=== PATIENT | female | born 1945 | race Caucasian/White ===

== ENCOUNTER 2024-08-10 15:46 | Outpatient (CLI) | payer MEDICARE, SELFPAY ==
--- NOTE | 2024-08-10 14:02 | DI.RAD_ITS ---
Exam(s) XR PELVIS AP EXAM: XR PELVIS AP CLINICAL HISTORY: eval R hip OA for urgery. TECHNIQUE: 2D digital imaging was performed. Single AP view. COMPARISON: CR XR HIP MIN 2V RT from 05/19/2024 FINDINGS: BONES: No acute fracture is present. No bony destructive lesion is seen. JOINTS: No dislocation present. There is severe narrowing of the right hip joint space, with a bone- on-bone appearance. There is prominent spurring at the margins of the femoral head as well as aceta bulum. The left hip joint space is maintained. There is mild spurring at the left acetabulum. SOFT TISSUE: Normal. IMPRESSION: Severe degenerative changes of the right hip. DATA REPOSITORY: RADIATION DOSE DELIVERED:
== END 2024-08-10 15:47 | disposition home or self-care (01) ==
LOC: DIORS 15:46
PROVIDERS: PCP Registered Nurse; Referring Provider Registered Nurse; Visit Provider Student in an Organized Health Care Education/Training Program
DX: M16.11 Unilateral primary osteoarthritis, right hip (principal); M17.11 Unilateral primary osteoarthritis, right knee; M21.061 Valgus deformity, not elsewhere classified, right knee; M17.12 Unilateral primary osteoarthritis, left knee
CPT/HCPCS: 99204; 72170

== ENCOUNTER → 2025-05-21 13:52 | Outpatient (BNVA) | payer MEDICARE, SELFPAY | PROVIDERS: PCP Registered Nurse; Referring Provider Registered Nurse; Visit Provider Physician Assistant | DX: M16.11 Unilateral primary osteoarthritis, right hip (principal); E11.9 Type 2 diabetes mellitus without complications | CPT/HCPCS: 99214; 36416; 83036 ==

== ENCOUNTER 2025-05-21 18:49 | Outpatient (REF) | payer MEDICARE, SELFPAY ==
[2025-05-21 19:49] LABS: HCT 42.3 % (36.0-46.0); HGB 13.9 g/dL (11.2-15.7); MCH 27.9 pg (27.0-33.0); MCHC 32.9 % (32.0-36.0); MCV 85 fL (80-95); MPV 10.8 fL (8.0-11.0); Platelet Count 240 10^3/uL (130-400); RBC 4.99 10^6/uL (3.93-5.22); RDW 13.2 % (11.7-14.6); RDW-SD 40.7 fL; WBC 7.71 10^3/uL (4.4-10.8)
[2025-05-21 19:56] LABS: Anion Gap 9.7 mmol/L (3-11); BUN 14 mg/dL (7-18); CO2 28.3 mmol/L (21.0-32.0); CREATININE 0.7 mg/dL (0.55-1.02); Calcium 10.1 mg/dL (8.5-10.1); Chloride 98 mmol/L (98-107); Estimated GFR 88.47 (mL/min/1.73m2); Glucose 98 mg/dL (74-106); Potassium 3.7 mmol/L (3.5-5.1); Sodium 136 mmol/L (136-145)
== END 2025-05-21 18:50 | disposition home or self-care (01) ==
LOC: LBN 18:49
PROVIDERS: PCP Registered Nurse; Visit Provider Student in an Organized Health Care Education/Training Program
DX: M16.11 Unilateral primary osteoarthritis, right hip (principal); Z01.818 Encounter for other preprocedural examination
CPT/HCPCS: 80048; 85027

== ENCOUNTER 2025-05-30 08:06 | Day surgery (SDC) | payer MEDICARE, SELFPAY ==
[2025-05-30] VITALS (26 sets, daily range): BP systolic 112–192; BP diastolic 70–144; PULSE 79–99; RESP 12–21; TEMP 36–36.7; O2SAT 91–98; BMI 34.4
[2025-05-30] MEDS: Celecoxib 200 MG CAP 400 MG PO (09:26)
[2025-05-30] MEDS: Acetaminophen 500 MG TAB 1000 MG PO (09:26)
--- NOTE | 2025-05-30 09:30 | W.ANESPRE ---
General Info Date of Service Date Performed: 05/30/25 Height: 5 ft 6 in Weight: 97 kg Body Mass Index (BMI): 34.4 Surgical Procedure: Operation Date: 05/30/25 11:05 Proposed Procedure Side Surgeon p Hip Total Hip Anterior- Corail Short Right Joe Luong MD Meds Allergies and Home Medications Allergies Allergy/AdvReac Type Severity Reaction Status Date / Time aspirin (From Percodan) Allergy Severe Anaphylaxis Verified 05/30/25 08:52 codeine Allergy Severe Anaphylaxis Verified 05/30/25 08:52 morphine Allergy Severe Anaphylaxis Verified 05/30/25 08:52 oxycodone (From Percodan) Allergy Severe Anaphylaxis Verified 05/30/25 08:52 acetaminophen-oxycodone Allergy Severe Anaphylaxis Uncoded 05/30/25 08:52 Home Medication ?Medication ?Instructions ?Recorded atorvastatin 40 mg tablet 40 mg PO DAILY 05/30/24 hydrochlorothiazide 25 mg tablet 25 mg PO DAILY 05/30/24 lisinopril 40 mg tablet 40 mg PO DAILY 05/30/24 multivitamin 1 tab PO DAILY 05/30/24 vitamin B complex 1 tab PO DAILY 05/30/24 Calcium 500 + D (D3) 05/30/25 Elderberry 05/30/25 Percogesic 05/30/25 cimetidine 200 mg tablet 200 mg PO ONCE 05/30/25 (Heartburn Relief (cimetidine)) coenzyme Q10 10 mg capsule (Co 10 mg PO ONCE 05/30/25 Q-10) magnesium 200 mg tablet 200 mg PO DAILY 05/30/25 vitamin A-vitamin C-vit E-min 1 tab PO DAILY 05/30/25 tablet (Ocutabs tablet) Current Visit Medications: Current Medications Generic Name Dose Route Start Last Admin Trade Name Freq PRN Reason Stop Dose Admin Acetaminophen 1,000 mg 05/30/25 06:00 05/30/25 09:26 Acetaminophen 500 Mg Tab PO 05/30/25 23:59 1,000 mg PREOP CHAD Administration Acetaminophen 1,000 mg 05/30/25 08:28 Acetaminophen 500 Mg Tab PO 06/29/25 08:27 TID PRN PRN Analgesia Celecoxib 400 mg 05/30/25 06:00 05/30/25 09:26 Celecoxib 200 Mg Cap PO 05/30/25 23:59 400 mg PREOP CHAD Administration Docusate Sodium 100 mg 05/30/25 07:21 Docusate Sodium 100 Mg Cap PO 06/29/25 07:20 BID PRN PRN Constipation Gabapentin 300 mg 05/30/25 06:00 Gabapentin 300 Mg Cap PO 05/30/25 23:59 PREOP CHAD Ringer's Solution 1,000 mls @ 80 mls/hr 05/30/25 06:00 IV 05/30/25 23:59 INFUSION CHAD Cefazolin Sodium/Dextrose 2 gm in 50 mls @ 100 mls/hr 05/30/25 06:00 Ancef Duplex IVPB 05/30/25 23:59 PREOP CHAD Tranexamic Acid/Sodium Chloride 1,000 mg in 100 mls @ 600 mls/hr 05/30/25 06:00 IVPB 05/30/25 23:59 PREOP CHAD IV Miscellaneous Supplies 1 each 05/30/25 06:00 Iv Access IV 05/30/25 23:59 DIRECTED CHAD Ondansetron HCl 4 mg 05/30/25 07:21 Ondansetron 4 Mg/2 Ml Vial IVP 06/29/25 07:20 Q6H PRN PRN Nausea Polyethylene Glycol 17 gm 05/30/25 07:21 Polyethylene Glycol 3350 17 Gm Packet PO 06/29/25 07:20 BID PRN PRN Constipation Sodium Chloride 0 ml 05/30/25 06:00 Normal Saline Flush 10 Ml Syr IV 05/30/25 23:59 PRN PRN Sodium Chloride 0 ml 05/30/25 06:00 Normal Saline 10 Ml Vial IJ 05/30/25 23:59 DIRECTED PRN Sterile Water 0 ml 05/30/25 06:00 Water,Injection,Sterile 10 Ml Vial IJ 05/30/25 23:59 DIRECTED PRN Tramadol HCl 50 mg 05/30/25 07:26 Tramadol 50 Mg Tab PO 06/29/25 07:25 Q4H PRN PRN PFSH Active Problems Active Problems: Problem Status Onset Code Unilateral primary osteoarthritis, left knee Acute M17.12 Acquired genu valgum of right knee Acute M21.061 Localized osteoarthritis of right knee Acute M17.11 Arthritis of right hip Acute M16.11 Medical History Medical History (Updated 05/30/25 @ 09:47 by Arlen Elizondo) Hx of fracture of left hip History of meningioma Diabetes mellitus Hyperlipidemia Hypertension Surgical History Surgical History Hx of tubal ligation H/O arthroscopy of left knee Tobacco Smoking/Tobacco Use Status: Former Tobacco Use Passive smoking exposure: No Alcohol Alcohol Intake: current Alcohol intake frequency: holidays/special occasions only Alcohol type: wine Substance Use Substance use: Never Substance use type: does not use Details: alcohol: about a year Vital Signs and Lab Results Vital Signs Most Recent Vital Signs in EMR: Most Recent Vital Signs Temp Pulse Resp BP Pulse Ox 36.7 C 91 H 20 173/104 H 98 05/30/25 09:20 05/30/25 09:20 05/30/25 09:20 05/30/25 09:20 05/30/25 09:20 Point of Care Results Point of Care Results: Finger Stick Blood Glucose 127 05/30/25 08:49 Lab Results Complete Blood Count: WBC, (4.4-10.8) 7.71 10^3/uL 05/21/25, 15:00 RBC, (3.93-5.22) 4.99 10^6/uL 05/21/25, 15:00 Hgb, (11.2-15.7) 13.9 g/dL 05/21/25, 15:00 Hct, (36.0-46.0) 42.3 % 05/21/25, 15:00 Plt Count, (130-400) 240 10^3/uL 05/21/25, 15:00 Complete Metabolic Panel: Sodium, (136-145) 136 mmol/L 05/21/25, 15:00 Potassium, (3.5-5.1) 3.7 mmol/L 05/21/25, 15:00 Chloride, (98-107) 98 mmol/L 05/21/25, 15:00 Carbon Dioxide, (21.0-32.0) 28.3 mmol/L 05/21/25, 15:00 BUN, (7-18) 14 mg/dL 05/21/25, 15:00 Creatinine, (0.55-1.02) 0.7 mg/dL 05/21/25, 15:00 Est GFR (CKD-EPI 2020), (mL/min/1.73m2) 88.47 06/30/25, 15:00 Calcium, (8.5-10.1) 10.1 mg/dL 05/21/25, 15:00 Glucose, (74-106) 98 mg/dL 05/21/25, 15:00 Hemoglobin A1c, (4.5-5.7) 6.3 % H 05/21/25, 14:48 Anesthesia Assessment and Plan Anesthesia History Personal History: No History of Anesthesia Complications Family History: No Family History of Anesthesia Complications Exercise Tolerance Exercise Tolerance: Metabolic Equivalents<4 Pertinent Negatives Pertinent Negatives: No Symptoms of GERD (uses OTC cimetidine, last used yesterday, no s/s today), No Major Cardiovascular Symptoms or Complaints, No Major Pulmonary Symptoms or Complaints and No History of CVA/TIA Cardiac & Pulmonary Exam Cardiac Exam: Normal S1/S2 Heart Sounds Pulmonary Exam: Clear Bilateral Breath Sounds and Unable to Assess Implantable Cardiac Device Does patient have a Pacemaker or an ICD?: No Airway Exam Known Difficult Airway: No Mallampati Class: 3 Mouth Opening: Normal (> 3cm) Thyromental Distance: Greater than 3 cm Neck Range of Motion: Full ROM Neck Circumference: Thick Teeth Condition: Removable Dentures/Plates Upper, Removable Dentures/Plates Lower and Edentulous ASA Classification ASA Score: ASA 2 Emergency Case?: No NPO Status NPO Status: NPO Clears >2 hours, Solids >8 hours Anesthesia Plan Resuscitation Status: Full Code Anesthesia Technique: Spinal Anesthesia Airway Planned: Natural Airway Monitors Used: Standard Monitors Preoperative Comments:: 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
[2025-05-30] MEDS: Lactated Ringers 1,000 ML 80 ML IV (09:40)
[2025-05-30] MEDS: ceFAZolin 2 GM/50 ML BAG IVPB (10:03)
[2025-05-30] MEDS: TRANEXAMIC ACID/SOD. CHL. 1,000 MG/100 ML BAG 600 MG IVPB (10:24)
--- NOTE | 2025-05-30 11:22 | DI.RAD_ITS ---
Exam(s) XR HIP RT IN OR EXAM: XR HIP RT IN OR CLINICAL HISTORY: Arthritis of right hip. TECHNIQUE: 2D and realtime digital imaging was performed. COMPARISON: CR XR HIP LT MIN 2V AND PELVIS from 08/21/2024 FINDINGS: Hard copy images show placement of a right hip prosthesis. The components appear well aligned. Please see procedure note for details. Fluoro time: 24.9seconds RADIATION DOSE DELIVERED: fritz Redd=3.8 mGy
--- NOTE | 2025-05-30 11:48 | ROE_ITS ---
Operative Note Operative Note PRE-OP DIAGNOSIS: Right Hip Osteoarthritis POST-OP DIAGNOSIS: same PROCEDURE: Right Anterior Total Hip Arthroplasty with Intraoperative Navigation SURGEON: Joe Luong ORGAN FIXER: Jhoan Anderson ANESTHESIA TYPE: Spinal Refer to Anesthesia Record ESTIMATED BLOOD LOSS: 100 PATHOLOGY: none sent TOURNIQUET TIME: 0 COMPLICATIONS: None Patient was transported to: PACU Patient's condition: stable Implants: 1. Depuy Wishram Acetabular Component, 54mm 2. Depuy Acetabular Liner, [id number] 3. Depuy Corail Standard Collared Femoral Stem, Size 15 4. Depuy Altrx Ceramic Femoral Head, Size 36+1.5mm Indications: I have seen Marilee in clinic for symptoms of hip arthritis, confirmed with radiographic findings. She has exhausted nonoperative methods and was having significant limitations in daily function and desired better function and less pain. I discussed the technical details of a hip replacement. I explained the risks of the procedure to include, but not limited to, bleeding, infection, pain, stiffness, fracture, damage to nerves and vessels, damage to muscles and tendons, loosening, instability, leg length inequality, need for repeat procedure, blood clot and cardiopulmonary demise. Despite these risks, Marilee elected to proceed. Findings: There was significant signs of arthritis throughout the hip with large osteophytes throughout Procedure Description: Marilee was greeted in the preoperative holding area where the correct side was identified and marked. The consent was reviewed with the patient and signed. The history and physical was updated. All questions were answered. She was taken back to the operating room. A spinal anesthestic was then administered. The feet were wrapped with cast padding and Coban and then placed into the boot liners and then into the boots. Care was taken to protect the skin and make sure the heels were fully down and the boots were stable. The patient was then positioned onto the HANA table. Both legs were held in a neutral position. SCDs were applied. The patient was then slid down onto a peroneal post. Prophylactic antibiotics in the form of Cefazolin were administered. 1g of Tranxemic Acid was given intravenously within 30 minutes of incision. The right leg was then prepped with Chloraprep and draped in a standard fashion. A second prep with Chloraprep was performed prior to placement of a shower-curtain type drape with Iodine impregnated skin protection. A timeout to confirm correct identity, side and site, procedure, allergies, anesthesia, and medical concerns was performed. An obliquely oriented incision was made starting lateral to the ASIS and running distal over the Tensor Fascia Nataly (TFL) muscle belly toward the fibular head, approximately 10cm. The skin and soft tissue was dissected sharply, through Juan Pablo?s fascia, and to the fascia of the TFL. With the fascia and superior border of the IT band identified, the fascia was incised with a new knife just above any perforators from the IT band. The TFL muscle belly was bluntly dissected away from the fascia and moved laterally. The fat between TFL and rectus was identified to ensure the dissection was not within the TFL. Blunt dissection created space between abductors and the capsule and retractor was placed over the lateral femoral neck. The fibers of the rectus femoris tendon were identified and these were freed from the anterior capsule. A second cobra retractor was placed around the medial femoral neck. The TFL was further retracted laterally to show the deep fascia. Careful dissection through this layer identified three main crossing vessels of the lateral femoral circumflex. These were cauterized in multiple locations and then cut without any noticeable bleeding. The TFL was further released bluntly from the deep fascia to expose anterior hip capsule and fat The soft tissue orthopaedic retractor was then placed beneath the TFL and against sartorius and medial soft tissues to protect and retract the soft tissues. A T-capsulotomy was then performed starting at the superior lateral acetabulum and moving distally to the intertrochanteric ridge. These capsular flaps were tagged with a No. 1 Vicryl and elevated from within. The capsular flaps were released to the shoulder of the lateral neck and to the lesser trochanter to give excellent visualization of the proximal femur. A neck osteotomy was performed using an oscillating saw based on preoperative templates. This cut started in the shoulder and of the lateral neck and exited medially. The saw was at all times directed medially to avoid injury to the greater trochanter. Gross traction was applied to the leg and the osteotomy opened. The femoral head was removed with a corkscrew, making sure to protect the TFL on its exit. Traction was released after head removal. This was measured on the back table to determine the starting reamer size. Portions of the rectus obscuring visualization were minimally elevated off the superior acetabulum. An anterior retractor was placed over the anterior wall between capsule and labrum and attached to the Gripper retraction system. The femur was rotated to 90 degrees and medial capsule was fully released until the lesser trochanter was palpable and visible; the femur was returned to 30 degrees. A posterior retractor was placed similarly between capsule and labrum. This provided excellent visualization. The contents of the cotyloid fossa were removed with electrocautery and the labrum was removed with a knife. There was a notable floor osteophyte. There was significant chondromalacia of the superior acetabulum. Acetabular reaming began with a 49mm reamer. This first reaming was directed anterior to posterior and medial to get down to the true floor. This was inspected and reamed until the true floor was reached. The anterior retractor was then released and entry and exit was provided by traction on the capsular flaps. I then reamed sequentially up to a 54mm reamer where good fit was obtained. The larger reamers were oriented based on anatomical reference of the anterior and lateral dumont to ensure proper abduction and anteversion. Positioning and size was confirmed with the fluoroscopy. A 54mm Depuy Wishram acetabular component was selected. The acetabulum was reamed around the periphery with the selected acetabular size to prevent a rim fit. The deep t issues were irrigated. The acetabular component was then impacted in a position of about 40-45 degrees of abduction and 15-20 degrees of anteversion, using the patient?s anatomy as the ultimate landmark. Fluoroscopy was used to confirm this. There was excellent cyber workforce developer and manager of the acetabular component and the inserting handle was removed. The acetabular liner, Depuy [id number] polyethylene liner, was inserted and lined up with the tines of the acetabular component. There was no soft tissue interposition. The liner was then impacted into position and confirmed to be well-seated. A portion of the brian-articular cocktail was then injected around the acetabulum into the capsule and periosteum. This cocktail consisted of 123mg of Ropivacaine, 0.25mg of Epinephrine, 0.04mg of Clonidine, and 15mg of Ketorolac, diluted to 50cc. The leg was rotated to 120 degrees. Any remaining medial capsule was released until the lesser trochanter was easily palpable. A retractor was placed medially. The lateral capsule was further released into the shoulder to allow access to the greater trochanter. A Sandoval retractor was placed over the greater trochanter which allowed the trochanter to flip in front of the capsule for excellent exposure. The leg was brought down into maximal extension and 20 degrees of adduction while ensuring there was no impingement on the acetabulum. Any remnant capsule within the trochanter was released. There is noted to be some peel back of the posterior most edge of the greater trochanter where capsule was attached but no true fracture. Piriformis and obturator externis were identified and protected. There was excellent access to the proximal femur. The lateral neck remnant was removed with a rongeur. A blunt canal probe was used to identify the canal and trajectory for later broaching. A box osteotome initiated the broach course. A small curved rasp and a curved curette were used to work laterally. Broaching then began with a size 8 Corail broach. This was inserted manually around the trochanter and into the canal before mallet blows. The broach was seated to a few millimeters below the cut level based on the neck cut and the preoperative template. Sequential broaching was continued with the Zayo pneumatic broaching device until a tight fit was obtained with good rotational control of the femur. A trial standard neck was inserted along with a +1.5 trial head. The leg was brought out of extension and adduction and then reduced with traction and internal rotation. The leg was stable anteriorly in a position of 30 degrees of extension and 90 degrees of external rotation. Fluoroscopy was used to ensure there was no fracture and the stem was seated well. Leg lengths were checked with an AP pelvis and pelvic reference points. Bettr[employer] navigation system was used to confirm appropriate positioning and leg length and offset. Once content with the desired offset and leg lengths, the leg was brought back into extension, external rotation and adduction. The periosteum and surrounding tissue was injected with remaining portion of the brian-articular cocktail. The proximal femur was irrigated as well as the deep tissues. The Depuy Corail standard collared stem, size 15, was then manually inserted into the proximal femur making sure to control rotation. It was then malleted into position with light blows, giving breaks to allow bone expansion and decrease risk of fracture. The selected Depuy Altrx Ceramic Head, size 36+1.5mm, was then placed onto the clean and dry trunnion and secured with impaction onto the tapered fit. The leg was brought back out of extension and adduction and reduced with traction and internal rotation. Stability was confirmed with no shuck at 90 degrees of external rotation and 30 degrees of extension. No impingement through range of motion arc. Final x-ray images were obtained with fluoroscopy to confirm adequate positioning and no intraoperative fracture. The deep tissues were thoroughly irrigated with Surgiphor, betadine solution. This was allowed to sit in the wound for 3 minutes before being thoroughly irrigated out with normal saline. The capsule was then reapproximated with the previously placed sutures. The TFL fascia was finally closed with a No. 2 Stratafix, barbed suture. Deep tissues were then reapproximated with 0 Vicryl and a running 2-0 Vicryl. The skin was closed with a running 4-0 Monocryl in a subcuticular fashion. This was reinforced with skin glue. A Mepilex silver dressing was applied. At the end of the case, all counts were correct. Marilee was transferred to the hospital bed without difficulty and suffering no notable complications. Marilee has a good prognosis. Physical therapy will start today and without restrictions, weight-bearing as tolerated. Aspirin 81mg BID will be used for DVT prophylaxis. Date of Procedure: 05/30/25
--- NOTE | 2025-05-30 11:55 | PDOC.DSDIS_ITS ---
Date of service: 05/30/25 Discharge Plan Disposition Patient Disposition: Home Condition: Good Discharge Details Reason For Visit: R THR Attending Provider: Joe Luong Primary Care Provider: Pee Little Home Meds and New Rx's Prescriptions: New acetaminophen 500 mg tablet 1,000 mg PO TID Qty: 90 3RF aspirin 81 mg tablet,delayed release (DR/EC) 81 mg PO BID Qty: 60 0RF celecoxib 200 mg capsule 200 mg PO BID Qty: 60 0RF dexamethasone 4 mg tablet 4 mg PO DAILY Qty: 2 0RF docusate sodium 100 mg capsule 100 mg PO BID PRNQty: 28 0RF tramadol 50 mg tablet 50 mg PO Q4H PRN (Reason: pain) Qty: 12 0RF pantoprazole 40 mg tablet,delayed release (DR/EC) 40 mg PO DAILY Qty: 14 0RF Continued atorvastatin 40 mg tablet 40 mg PO DAILY hydrochlorothiazide 25 mg tablet 25 mg PO DAILY lisinopril 40 mg tablet 40 mg PO DAILY multivitamin Tablet 1 tab PO DAILY vitamin B complex Tablet 1 tab PO DAILY magnesium 200 mg tablet 200 mg PO DAILY Elderberry Calcium 500 + D (D3) Patient Comments: Vit D3 is larger dose per pt Ocutabs Tablet 1 tab PO DAILY coenzyme Q10 [Co Q-10] 10 mg capsule 10 mg PO ONCE Percogesic cimetidine [Heartburn Relief (cimetidine)] 200 mg tablet 200 mg PO ONCE Discharge Instructions Additional Instructions: Total Hip Discharge Instructions Activity: The most important activity is to walk. You should try to take short walks a few times a day. You have no restrictions on movement or positioning, but do not try to force what you do. You will find some stiffness and weakness with hip flexion (lifting your knee). Do not try to strengthen this too early, continue to practice walking and stairs and this will come. - Outpatient physical therapy can be helpful to help return you to a normal gait and improve your flexibility and strength. This can start around 2 weeks. For some patients, it?s not necessary. Usually this is determined at the time of discharge or at the first post-operative visit. - You should wear the MESFIN hose on both legs for 2 weeks. Dressing: Keep the surgical dressing in place for at least one week. After the first week it may be removed and replace with light gauze and tape or nothing. It may get wet after 3 days but avoid soaking the dressing. If it gets wet, just lightly pat dry. It is important to always keep some gauze between skin folds, especially when you are sitting. Spend some time with the wound exposed when you are lying flat as the incision does wrinkle onto itself. Medications: - You should take Tylenol and an anti-inflammatory Celebrex as your primary pain control medications. If the Celebrex is too expensive or not covered, please call the office for another alternative (Advil/Ibuprofen or Naproxen/Aleve). - You have been prescribed a stronger pain medication tramadol for breakthrough pain, take as needed as prescribed. - You have also been prescribed a stomach acid reduction agent Pantoprozole to help reduce stomach acid and reflux. - You have also been prescribed Decadron to help with post-operative nausea and pain. You will take this for two days starting tomorrow. - You will be taking Aspirin 81mg twice a day for DVT prevention unless instructed otherwise. - If you have constipation you should take Colace or Miralax (both over-the- counter). It takes most people 3-4 days to have a bowel movement. Follow-up: 2 weeks If you have any acute concerns or questions, please do not hesitate to contact the office at [phone]. You may contact Dr. Luong with any questions after hours through the hospital at [phone] or on his cell phone at [phone]. Referrals: Joe Luong MD [ [facility] STAFF PHYSICIAN, Orthopaedic Surgical] Equipment/Supplies: Walker Activity:: Activity as Tolerated Shower/Bathe:: 72 hours Diet:: As Tolerated Discharge Orders Discharge Orders: Discharge Order (Routine); Ordered 05/30/25 Ordered By: Jhoan Anderson DS: Diagnosis Discharge Diagnosis (1) Arthritis of right hip: Status: Acute
[2025-05-30] MEDS: fentaNYL 100 MCG/2 ML VIAL IVP ×3 (12:18→12:33)
[2025-05-30] MEDS: traMADol 50 MG TAB PO (13:19)
[2025-05-30] MEDS: Tranexamic Acid 650 MG TAB 1300 MG PO ×2 (13:20)
--- NOTE | 2025-05-30 13:33 | W.ANESPOSTOP ---
Postoperative Evaluation Date, Time and Location Date Performed: 05/30/25 Time Performed: 12:40 Patient Location: PACU Vital Signs Most Recent Imported Vital Signs: Most Recent Vital Signs Temp Pulse Resp BP Pulse Ox 36.3 C L 87 18 186/101 H 95 05/30/25 12:51 05/30/25 12:51 05/30/25 12:51 05/30/25 12:51 05/30/25 12:51 Pain Score Most Recent Pain Score: Most Recent Pain Score Pain Level 7 05/30/25 12:51 Assessment Mental Status: Awake (Alert & Oriented to Patient Baseline) Airway and Respiratory Function: Patent airway with normal (patient baseline) respiratory exam Cardiovascular Function: Hemodynamically Stable Hydration Status: Adequately Hydrated Nausea & Vomiting: No Nausea or Vomiting Pain: Pain is Moderate or Severe Postoperative Pain Management: Pain being addressed with medication (and repositioning) Peripheral Nerve Block: Patient did not receive a nerve block
--- NOTE | 2025-05-30 14:10 | IN_ITS ---
PT Notes Visit Reasons: R THR Physical Therapy Day Surgery Initial Evaluation Date: 05/30/2025 Referring Doctor: AKI Smiley PT Orders: PT CONSULT: S/P Ortho Surgery Precautions: WBAT through the R LE with AD. Patient Profile/Admitting Diagnosis: Kitty is a 79-year-old female with degenerative joint disease of the right hip and is status post right total hip arthroplasty on postoperative day 0. PMHX: All Active Problems (Updated 08/11/24 @ 06:45 by Joe Luong MD) Unilateral primary osteoarthritis, left knee (Acute) Acquired genu valgum of right knee (Acute) Localized osteoarthritis of right knee (Acute) Arthritis of right hip (Acute) Medical History (Updated 08/11/24 @ 06:45 by Joe Luong MD) Diabetes mellitus Hyperlipidemia Hypertension Surgical History (Updated 08/11/24 @ 06:45 by Joe Luong MD) H/O arthroscopy of left knee Social History/Home Situation: Lives alone in a private home with 2 steps to enter and rails on B sides. Has a good support network from friends. Equipment Owned/DME: Three 4WW, 1 standard walker Subjective: Pleasant and cooperative. Was complaining of soreness in the inner side of her knee but symptom resolved with rest. Objective: General Observation: PAtient resting in bed. Mepilex Ag over surgical incision. Mental Status: A and O x 4 Pain: 3/10 in medial knee at rest that resolved at rest ROM: Right Lower Extremity: Hip flexion allowed up to 100 degrees. Hip abduction WFL. Knee flexion 10 degrees to 90 degrees. Knee extension -10 degrees. Ankle dorsiflexion WFL. Ankle plantarflexion WFL. Left Lower Extremity: Hip flexion WFL. Hip abduction WFL. Knee flexion WFL. Ankle dorsiflexion WFL. Ankle plantarflexion WFL. Strength: Right Lower Extremity: Hip flexors 3-/5. Hip abductors 3-/5. Knee flexors -/5. Knee extensors 4-/5. Ankle dorsiflexors 4-/5. Ankle plantarflexors 4-/5. Left Lower Extremity:Hip flexors 4/5. Hip abductors 4/5. Knee flexors 4/5. Knee extensors 4/5. Ankle dorsiflexors 4/5. Ankle plantarflexors 4/5. Sensation: Intact as to pain and light pressure in B LE Bed Mobility/Transfers: Minimal cueing provided for use of B hands as needed for support, movement sequence, AD management, and posture to reduce fall risk and minimize pain report Supine to sit stand by assist Sit to stand contact guard assist with FWW Stand to sit stand by assist with FWW Bed to chair contact guard assist Gait: Facilitated safe and correct performance of level surface ambulation covering a distance of 150 feet using front wheeled walker with step to gait pattern requiring contact-guard assist and minimal verbal cueing for AD management, limb movement sequence, and posture to minimize pain reported reduce fall risk. Mild shortness of breath decreased with seated rest. Stairs: Guided patient with safe and correct negotiation of 3 x 4 inch steps and 2 x 6 inch steps holding onto bilateral rails with step to gait pattern requiring minimal verbal cueing for hand placement, limb movement sequence, and posture to minimize pain reported reduce fall risk. No report of increased pain in the right hip. Balance: Static Sitting: Normal Dynamic Sitting: Normal Static Standing: Fair Dynamic Standing: Fair Special Tests: Mobility Limitations Standardized Measure [facility] AM-PAC 6 clicks Basic Mobility Inpatient Short Form: Raw Score: 19 CMS Score: 42% deficit Informed Consent/Education: Patient instructed in purpose of PT consult. Packet containing YAS exercise protocol has been given to patient. Education and training on initial set of exercises that can be done at home have been completed with patient. Trained patient with correct performance of exercises below to maximize motor control, joint flexibility, soft tissue extensibility of the R hip musculature to facilitate return to independent functional mobility performance. Access Code: [email or web address] URL: [email or web address] Date: 05/30/2025 Prepared by: Samara Mena Exercises - Gluteal Sets - 1 x daily - 7 x weekly - 1 sets - 10 reps - 5 hold - Supine Heel Slide - 1 x daily - 7 x weekly - 1 sets - 10 reps - 5 hold - Supine Ankle Pumps - 1 x daily - 7 x weekly - 1 sets - 10 reps - 5 hold - Seated March - 1 x daily - 7 x weekly - 1 sets - 10 reps - 5 hold - Seated Long Arc Quad - 1 x daily - 7 x weekly - 1 sets - 10 reps - 5 hold Assessment: Patient requires the use of a front-wheeled walker for all mobility ADL performance to maximize independence and reduce fall risk. Patient presents with clinical signs and symptoms consistent with current/admitting diagnoses that have resulted to mobility limitations, gait instability, generalized weakness, and impairment of motor control as demonstrated by the following impairment level findings: 1. Decreased strength to R hip major muscle groups 2. Impaired standing balance 3. Limitation of joint range of motion in R hip Impairments are contributing to the following functional limitations: 1. Inability to safely ambulate without assistive device 2. Increase completion time for mobility ADL performance 3. Increased fall risk Patient is assessed as a 40214 moderate complexity based on the following: History: 79-year-old female with impairment level findings, functional limitations, and past medical history as indicated above Examination: Demonstrable impairment in strength, balance, and mobility level with underlying impairments and functional limitations as documented above Presentation: Evolving Decision Makin moderate complexity Goals: N/A. PT evaluation and 1-2 treatment sessions only for functional mobility paul noah using recommended AD and for HEP instruction. Plan of Care/Treatment Plan: N/A. PT evaluation and 1-2 treatment session only for functional mobility training using recommended AD and for HEP instruction. DISCHARGE RECOMMENDATIONS: Home when medically cleared by orthopedic surgeon. Recommend outpatient PT services in order to optimize functional mobility outcomes and facilitate return to independent community ambulation without an assistive device. TREATMENT CODE/TIME: 84329 x 20 minutes for 1 unit, 95208 x 19 minutes for 1 unit (14: 10?14: 49). Thank you for the opportunity to participate in the care of this patient. Samara Mena PT, DPT, CLT [facility] [place], [place]
== END 2025-05-30 15:30 | disposition home or self-care (01) ==
PROVIDERS: PCP Registered Nurse; Visit Provider Student in an Organized Health Care Education/Training Program
PROC: (CPT 27130; principal; 2025-05-30 10:45)
DX: M16.11 Unilateral primary osteoarthritis, right hip (principal)
CPT/HCPCS: 20985; 27130; 97162; 97530; 73501; C1776; J0690; J1100; J2003; J2250; J2401; J2405; J2704; J3010

== ENCOUNTER 2025-06-14 13:20 | Outpatient (CLI) | payer MEDICARE, SELFPAY ==
--- NOTE | 2025-06-14 11:30 | DI.RAD_ITS ---
Exam(s) XR HIP RT COMPLETE AP PELVIS EXAM: XR HIP RT COMPLETE AP PELVIS CLINICAL HISTORY: 1ST POST OP S/P R YAS. TECHNIQUE: 2D digital imaging was performed. Two views COMPARISON: CR XR HIP LT MIN 2V AND PELVIS from 08/21/2024 XR HIP MIN 2V LT from 08/22/2024 XA XR HIP RT IN OR from 05/30/2025 FINDINGS: BONES: No acute fracture is present. Stable appearance of hardware in left hip for fracture fixation. No bony destructive lesion is seen. JOINTS: No dislocation present. Satisfactory alignment of newly placed right hip prosthesis. SOFT TISSUE: Normal. IMPRESSION: Satisfactory alignment of right hip prosthesis. DATA REPOSITORY: RADIATION DOSE DELIVERED:
== END 2025-06-14 13:21 | disposition home or self-care (01) ==
LOC: DIORS 13:21
PROVIDERS: PCP Registered Nurse; Visit Provider Physician Assistant
DX: Z47.1 Aftercare following joint replacement surgery (principal); Z96.641 Presence of right artificial hip joint
CPT/HCPCS: 99024; 73502

== ENCOUNTER → 2025-07-12 13:41 | Outpatient (BNVA) | payer MEDICARE, SELFPAY | PROVIDERS: PCP Registered Nurse; Referring Provider Registered Nurse; Visit Provider Physician Assistant | DX: Z47.1 Aftercare following joint replacement surgery (principal); Z96.641 Presence of right artificial hip joint | CPT/HCPCS: 99024 ==

== ENCOUNTER → 2025-08-20 13:46 | Outpatient (BNVA) | payer MEDICARE, SELFPAY | PROVIDERS: PCP Registered Nurse; Referring Provider Registered Nurse; Visit Provider Physician Assistant | DX: Z47.1 Aftercare following joint replacement surgery (principal); Z96.641 Presence of right artificial hip joint; Z87.81 Personal history of (healed) traumatic fracture; M25.552 Pain in left hip | CPT/HCPCS: 99213 ==

== ENCOUNTER → 2025-09-27 13:42 | Outpatient (BNVA) | payer MEDICARE, SELFPAY | PROVIDERS: PCP Registered Nurse; Referring Provider Registered Nurse; Visit Provider Physician Assistant | DX: M16.11 Unilateral primary osteoarthritis, right hip (principal) | CPT/HCPCS: 99024 ==

== ENCOUNTER 2025-09-27 15:21 | Outpatient (REF) | payer MEDICARE, SELFPAY ==
[2025-09-27 15:34] LABS: HCT 38.8 % (36.0-46.0); HGB 13.0 g/dL (11.2-15.7); MCH 27.7 pg (27.0-33.0); MCHC 33.5 % (32.0-36.0); MCV 83 fL (80-95); MPV 11.3 fL (8.0-11.0); Platelet Count 235 10^3/uL (130-400); RBC 4.69 10^6/uL (3.93-5.22); RDW 14.0 % (11.7-14.6); RDW-SD 42.1 fL; WBC 7.58 10^3/uL (4.4-10.8)
[2025-09-27 15:56] LABS: Anion Gap 8.7 mmol/L (3-11); BUN 14 mg/dL (7-18); CO2 30.3 mmol/L (21.0-32.0); Calcium 9.6 mg/dL (8.5-10.1); Chloride 99 mmol/L (98-107); Glucose 124 mg/dL (74-106); Potassium 3.8 mmol/L (3.5-5.1); Sodium 138 mmol/L (136-145)
== END 2025-09-27 15:22 | disposition home or self-care (01) ==
LOC: LBN 15:21
PROVIDERS: PCP Registered Nurse; Visit Provider Physician Assistant
DX: Z01.818 Encounter for other preprocedural examination (principal)
CPT/HCPCS: 80048; 85027

== ENCOUNTER 2025-10-02 07:37 | Observation (INO) | payer MEDICARE, SELFPAY ==
--- NOTE | 2025-10-01 10:15 | RT.EKG_ITS ---
APPROVED REPORT Exam: Resting ECG Reason for Exam: PREOP EKG Patient Location: O HR:90 bpm ECG Measurements Heart Rate 90 AXIS VT 173 P 38 QRSd 89 QRS -28 QT 345 T 52 QTc 421 Conclusion Sinus rhythm...normal P axis, V-rate 60- 99 Ventricular premature complex...V complex w/ short R-R interval Left anterior fascicular block
[2025-10-02] VITALS (30 sets, daily range): BP systolic 114–164; BP diastolic 55–133; PULSE 64–115; RESP 14–22; TEMP 35.7–36.4; O2SAT 91–99; BMI 35.4
[2025-10-02] MEDS: Acetaminophen 500 MG TAB 1000 MG PO ×2 (11:13→19:54)
[2025-10-02] MEDS: Lactated Ringers 1,000 ML 80 ML IV ×2 (11:22→17:33)
--- NOTE | 2025-10-02 11:28 | NUR.NOTE ---
Pt declines pre-op Celebrex at this time. -BR
--- NOTE | 2025-10-02 12:48 | W.ANESPRE ---
General Info Date of Service Date Performed: 10/02/25 Height: 5 ft 6 in Weight: 99.5 kg Body Mass Index (BMI): 35.4 Surgical Procedure: Operation Date: 10/02/25 15:05 Proposed Procedure Side Surgeon p Hip Total Hip Anterior Left Joe Luong MD s Hip Hardware Removal Left Joe Luong MD Meds Allergies and Home Medications Allergies Allergy/AdvReac Type Severity Reaction Status Date / Time aspirin (From Percodan) Allergy Severe Anaphylaxis Verified 10/02/25 10:47 codeine Allergy Severe Anaphylaxis Verified 10/02/25 10:47 morphine Allergy Severe Anaphylaxis Verified 10/02/25 10:47 oxycodone (From Percodan) Allergy Severe Anaphylaxis Verified 10/02/25 10:47 acetaminophen-oxycodone Allergy Severe Anaphylaxis Uncoded 10/02/25 10:47 Home Medication Medication Instructions Recorded atorvastatin 40 mg tablet 40 mg PO DAILY 05/30/24 hydrochlorothiazide 25 mg tablet 25 mg PO DAILY 05/30/24 lisinopril 40 mg tablet 40 mg PO DAILY 05/30/24 multivitamin 1 tab PO DAILY 05/30/24 vitamin B complex 1 tab PO DAILY 05/30/24 Calcium 500 + D (D3) 1 tab PO DAILY 05/30/25 Elderberry 05/30/25 Percogesic 05/30/25 cimetidine 200 mg tablet 200 mg PO ONCE 05/30/25 (Heartburn Relief (cimetidine)) coenzyme Q10 10 mg capsule (Co 10 mg PO ONCE 05/30/25 Q-10) magnesium 200 mg tablet 200 mg PO DAILY 05/30/25 vitamin A-vitamin C-vit E-min 1 tab PO DAILY 05/30/25 tablet (Ocutabs tablet) acetaminophen 500 mg tablet 1,000 mg (2 x 500 mg) PO Q8H PRN 10/02/25 pain #90 tabs aspirin 81 mg tablet,delayed 81 mg PO BID 30 days #60 tabs 10/02/25 release celecoxib 200 mg capsule (Celebrex) 200 mg PO BID PRN #60 caps 10/02/25 dexamethasone 4 mg tablet 4 mg PO DAILY #1 tab 10/02/25 docusate sodium 100 mg capsule 100 mg PO BID #28 caps 10/02/25 (Colace) pantoprazole 40 mg tablet,delayed 40 mg PO DAILY #14 tabs 10/02/25 release tramadol 50 mg tablet 50 mg PO Q6H PRN severe 10/02/25 postoperative pain #12 tabs Current Visit Medications: Current Medications Generic Name Dose Route Start Last Admin Trade Name Margoth PRN Reason Stop Dose Admin Acetaminophen 1,000 mg 10/02/25 06:00 10/02/25 11:13 Acetaminophen 500 Mg Tab PO 10/02/25 23:59 1,000 mg PREOP CHAD Administration Acetaminophen 1,000 mg 10/02/25 14:00 Acetaminophen 500 Mg Tab PO 11/01/25 13:59 TID CHAD Aspirin 81 mg 10/02/25 20:00 Aspirin E.C. 81 Mg Tabec PO 11/01/25 19:59 BID [facility] Atorvastatin Calcium 40 mg 10/03/25 08:30 Atorvastatin 40 Mg Tab PO 11/02/25 08:29 DAILY [facility] Celecoxib 400 mg 10/02/25 06:00 Celecoxib 200 Mg Cap PO 10/02/25 23:59 PREOP CHAD Celecoxib 200 mg 10/02/25 20:00 Celecoxib 200 Mg Cap PO 11/01/25 19:59 BID [facility] Dexamethasone 4 mg 10/03/25 08:30 Dexamethasone 4 Mg Tab PO 10/04/25 08:31 DAILY [facility] Docusate Sodium 100 mg 10/02/25 07:36 Docusate Sodium 100 Mg Cap PO 11/01/25 07:35 BID PRN PRN Constipation Hydrochlorothiazide 25 mg 10/03/25 08:30 Hydrochlorothiazide 25 Mg Tab PO 11/02/25 08:29 DAILY [facility] Ringer's Solution 1,000 mls @ 80 mls/hr 10/02/25 06:00 10/02/25 11:22 IV 10/02/25 23:59 80 mls/hr INFUSION CHAD Administration Cefazolin Sodium/Dextrose 2 gm in 50 mls @ 100 mls/hr 10/02/25 06:00 Ancef Duplex IVPB 10/02/25 23:59 PREOP CHAD Tranexamic Acid/Sodium Chloride 1,000 mg in 100 mls @ 600 mls/hr 10/02/25 06:00 IVPB 10/02/25 23:59 PREOP CHAD Cefazolin Sodium/Dextrose 1 gm in 50 mls @ 100 mls/hr 10/02/25 08:00 Ancef Duplex IVPB 10/03/25 00:29 Q8H CHAD IV Miscellaneous Supplies 1 each 10/02/25 06:00 Iv Access IV 10/02/25 23:59 DIRECTED CHAD Non-Formulary Medication 200 mg 10/02/25 12:45 Cimetidine [Heartburn Relief (Cimetidine)] PO 11/01/25 12:44 ONCE CHAD Non-Formulary Medication 10 mg 10/02/25 12:45 Coenzyme Q10 [Co Q-10] PO 11/01/25 12:44 ONCE CHAD Non-Formulary Medication 40 mg 10/03/25 08:30 Lisinopril PO 11/02/25 08:29 DAILY CHAD Non-Formulary Medication 200 mg 10/03/25 08:30 Magnesium PO 11/02/25 08:29 DAILY CHAD Ondansetron HCl 4 mg 10/02/25 07:36 Ondansetron 4 Mg/2 Ml Vial IVP 11/01/25 07:35 Q6H PRN PRN Nausea Pantoprazole Sodium 40 mg 10/03/25 07:30 Pantoprazole 40 Mg Tabcr PO 11/02/25 07:29 DAILY@0730 CHAD Polyethylene Glycol 17 gm 10/02/25 07:36 Polyethylene Glycol 3350 17 Gm Packet PO 11/01/25 07:35 BID PRN PRN Constipation Sodium Chloride 0 ml 10/02/25 06:00 Normal Saline Flush 10 Ml Syr IV 10/02/25 23:59 PRN PRN Sodium Chloride 0 ml 10/02/25 06:00 Normal Saline 10 Ml Vial IJ 10/02/25 23:59 DIRECTED PRN Sterile Water 0 ml 10/02/25 06:00 Water,Injection,Sterile 10 Ml Vial IJ 10/02/25 23:59 DIRECTED PRN Tramadol HCl 50 mg 10/02/25 07:36 Tramadol 50 Mg Tab PO 11/01/25 07:35 Q4H PRN PRN Pain Tranexamic Acid 1,300 mg 10/02/25 07:36 Tranexamic Acid 650 Mg Tab PO 11/01/25 07:35 ONCE PRN postoperative PFSH Active Problems Active Problems: Problem Status Onset Code History of total left hip arthroplasty Acute 10/02/25 Z96.642 History of total right hip replacement Acute 05/30/25 Z96.641 Acquired genu valgum of right knee Acute M21.061 Localized osteoarthritis of right knee Acute M17.11 Medical History Medical History (Updated 10/02/25 @ 13:07 by Tanvi Hamilton) Hx of fracture of left hip History of meningioma Last seen neuro 6 years ago, and her neurologist at [facility] in [place] stated she does not require further care unless she has symptoms, and that it is dormant Diabetes mellitus Hyperlipidemia Hypertension Surgical History Surgical History Hx of tubal ligation H/O arthroscopy of left knee Tobacco Smoking/Tobacco Use Status: Former Tobacco Use Passive smoking exposure: No Alcohol Alcohol Intake: current Alcohol intake frequency: holidays/special occasions only Alcohol type: wine Substance Use Substance use: Never Substance use type: does not use Vital Signs and Lab Results Vital Signs Most Recent Vital Signs in EMR: Most Recent Vital Signs Temp Pulse Resp BP Pulse Ox 36.4 C L 100 H 22 153/90 H 96 10/02/25 10:47 10/02/25 10:47 10/02/25 10:47 10/02/25 10:47 10/02/25 10:47 Point of Care Results Point of Care Results: Finger Stick Blood Glucose 111 10/02/25 10:09 Lab Results Complete Blood Count: WBC, (4.4-10.8) 7.58 10^3/uL 09/27/25, 14:35 RBC, (3.93-5.22) 4.69 10^6/uL 09/27/25, 14:35 Hgb, (11.2-15.7) 13.0 g/dL 09/27/25, 14:35 Hct, (36.0-46.0) 38.8 % 09/27/25, 14:35 Plt Count, (130-400) 235 10^3/uL 09/27/25, 14:35 Complete Metabolic Panel: Sodium, (136-145) 138 mmol/L 09/27/25, 14:35 Potassium, (3.5-5.1) 3.8 mmol/L 09/27/25, 14:35 Chloride, (98-107) 99 mmol/L 09/27/25, 14:35 Carbon Dioxide, (21.0-32.0) 30.3 mmol/L 09/27/25, 14:35 BUN, (7-18) 14 mg/dL 09/27/25, 14:35 Creatinine, (0.55-1.02) 1.0 mg/dL 09/27/25, 14:35 Est GFR (CKD-EPI 2020), (mL/min/1.73m2) 57.66 09/27/25, 14:35 Calcium, (8.5-10.1) 9.6 mg/dL 09/27/25, 14:35 Glucose, (74-106) 124 mg/dL H 09/27/25, 14:35 Imaging and Studies Imaging and Studies Study information below may be from another EMR and interpreted by another provider. Please see original notes in EMR for more complete details. EKG Summary: Conclusion Sinus rhythm...normal P axis, V-rate 60- 99 Ventricular premature complex...V complex w/ short R-R interval Left anterior fascicular block Anesthesia Assessment and Plan Anesthesia History Personal History: No History of Anesthesia Complications Family History: No Family History of Anesthesia Complications Exercise Tolerance Exercise Tolerance: Metabolic Equivalents<4 Pertinent Negatives Pertinent Negatives: No Symptoms of GERD (recurrent GERD at home, none today ), No Major Cardiovascular Symptoms or Complaints, No Major Pulmonary Symptoms or Complaints and No History of CVA/TIA Cardiac & Pulmonary Exam Cardiac Exam: Normal S1/S2 Heart Sounds Pulmonary Exam: Clear Bilateral Breath Sounds Implantable Cardiac Device Does patient have a Pacemaker or an ICD?: No Airway Exam Known Difficult Airway: No Mallampati Class: 3 Mouth Opening: Normal (> 3cm) Thyromental Distance: Greater than 3 cm Neck Range of Motion: Limited ROM Neck Circumference: Thick Teeth Condition: Removable Dentures/Plates Upper, Removable Dentures/Plates Lower and Edentulous ASA Classification ASA Score: ASA 3 Emergency Case?: No NPO Status NPO Status: NPO Clears >2 hours, Solids >8 hours Anesthesia Plan Resuscitation Status: Full Code Anesthesia Technique: Spinal Anesthesia Airway Planned: Natural Airway Monitors Used: Standard Monitors
[2025-10-02] MEDS: ceFAZolin 2 GM/50 ML BAG IVPB (13:43)
[2025-10-02] MEDS: TRANEXAMIC ACID/SOD. CHL. 1,000 MG/100 ML BAG 600 MG IVPB (13:45)
--- NOTE | 2025-10-02 13:48 | ROE_ITS ---
Operative Note Operative Note PRE-OP DIAGNOSIS: Left Hip Osteoarthritis and Femoral Neck Malunion POST-OP DIAGNOSIS: same PROCEDURE: Removal of Deep Orthopaedic Hardware with Separate Incision, Left Hip Left Anterior Total Hip Arthroplasty with Intraoperative Navigation SURGEON: Joe Luong SKI BASE TRIMMER: Tanvi Hamilton ANESTHESIA TYPE: Spinal Refer to Anesthesia Record ESTIMATED BLOOD LOSS: 400 PATHOLOGY: none sent TOURNIQUET TIME: 0 COMPLICATIONS: None Patient was transported to: PACU Patient's condition: stable Implants: 1. Depuy [place] Acetabular Component, 52mm 2. Depuy Acetabular Liner, [id number] 3. Depuy Corail Standard Collared Femoral Stem, Size 14 4. Depuy Altrx Ceramic Femoral Head, Size 36+1.5mm Indications: I have seen Marilee in clinic for symptoms of hip arthritis along with significant malunion of her proximal femur from fracture a little over a year ago fixed with plate and screws. Marilee has exhausted nonoperative methods and was having significant limitations in daily function and desired better function and less pain. I discussed the technical details of a hip replacement. I expla ined the risks of the procedure to include, but not limited to, bleeding, infection, pain, stiffness, fracture, damage to nerves and vessels, damage to muscles and tendons, loosening, instability, leg length inequality, need for repeat procedure, blood clot and cardiopulmonary demise. Despite these risks, she elected to proceed. Findings: The plate and screw construct in the lateral femur was removed out difficulty. Within the hip, there were significant signs of arthritis throughout the hip along with dense synovitis and scarring and deformity of the proximal femur. A collared, cementless hip replacement was performed with without notable complication. Procedure Description: Marilee was greeted in the preoperative holding area where the correct side was identified and marked. The consent was reviewed with the patient and signed. The history and physical was updated. All questions were answered. Marilee was taken back to the operating room. A spinal anesthestic was then administered. The feet were wrapped with cast padding and Coban and then placed into the boot liners and then into the boots. Care was taken to protect the skin and make sure the heels were fully down and the boots were stable. The patient was then positioned onto the HANA table. Both legs were held in a neutral position. SCDs were applied. The patient was then slid down onto a peroneal post. Prophylactic antibiotics in the form of Cefazolin were administered. 1g of Tranxemic Acid was given intravenously within 30 minutes of incision. The right leg was then prepped with Chloraprep and draped in a standard fashion. A second prep with Chloraprep was performed prior to placement of a shower-curtain type drape with Iodine impregnated skin protection. A timeout to confirm correct identity, side and site, procedure, allergies, anesthesia, and medical concerns was performed. Starting with the lateral thigh wound, the previous incision was incised. This was taken down sharply the skin and subcutaneous tissue. Electrocautery utilized to dissect down towards the IT band. There is notable scarring over these lateral soft tissues. The IT band is identified and split. The vastus fascia was identified. The vastus fascia was incised and the muscle fibers split longitudinally. The plate was identified. There was some overgrowth of bone proximally and distally. Soft tissue was elevated off of the plate/I had visualization of the entirety of the plate and screws. The 2 screws transfixing the sideplate to the proximal femur were removed. The compression screw was removed. I also remove the single screw just proximal to the compression hip screw device. The plate was then removed. Then the lag screw was removed without difficulty. The screw sites were debrided with a curette. The wounds were thoroughly irrigated. There is no significant bleeding. The tissues around this wound were then injected with a mixture of the periarticular cocktail consisting of 200 mg of ropivacaine, 0.5 mg of epinephrine, and 30 mg of ketorolac, diluted to 100 cc. The wound was once again irrigated. The IT band was closed with a running #1 Vicryl. The deeper tissues were closed with 0 Vicryl followed by 2-0 Vicryl. Skin was closed with a running 4-0 Monocryl. Attention was then turned to the hip joint. An obliquely oriented incision was made starting lateral to the ASIS and running distal over the Tensor Fascia Nataly (TFL) muscle belly toward the fibular head, approximately 10cm. The skin and soft tissue was dissected sharply, through Juan Pablo´s fascia, and to the fascia of the TFL. With the fascia and superior border of the IT band identified, the fascia was incised with a new knife just above any perforators from the IT band. The TFL muscle belly was bluntly dissected away from the fascia and moved laterally. The fat between TFL and rectus was identified to ensure the dissection was not within the TFL. Blunt dissection created space between abductors and the capsule and retractor was placed over the lateral femoral neck. The fibers of the rectus femoris tendon were identified and these were freed from the anterior capsule. A second cobra retractor was placed around the medial femoral neck. The TFL was further retracted laterally to show the deep fascia. Careful dissection through this layer identified three main crossing vessels of the lateral femoral circumflex. These were cauterized in multiple locations and then cut without any noticeable bleeding. The TFL was further released bluntly from the deep fascia to expose anterior hip capsule and fat The soft tissue orthopaedic retractor was then placed beneath the TFL and against sartorius and medial soft tissues to protect and retract the soft tissues. A T-capsulotomy was then performed starting at the superior lateral acetabulum and moving distally to the intertrochanteric ridge. These capsular flaps were tagged with a No. 1 Vicryl and elevated from within. The capsular flaps were released to the shoulder of the lateral neck and to the lesser trochanter. There was notable deformity of the proximal femur with the femoral head resting in the anterior position overlapping the femoral neck with significant shortening. Normal anatomical landmarks are difficult to appreciate. A neck osteotomy was performed using an oscillating saw based on preoperative templates. This cut started in the shoulder and of the lateral neck and exited medially. The saw was at all times directed medially to avoid injury to the greater trochanter. Gross traction was applied to the leg and the osteotomy opened. The femoral head was removed with a corkscrew, making sure to protect the TFL on its exit. Traction was released after head removal. Prominence and overgrowth of bone around the femoral neck were then removed with a rongeur. The femoral head was measured on the back table to determine the starting reamer size. Portions of the rectus obscuring visualization were minimally elevated off the superior acetabulum. An anterior retractor was placed over the anterior wall between capsule and labrum and attached to the Gripper retraction system. The femur was rotated to 90 degrees and medial capsule was fully released until the lesser trochanter was palpable and visible; the femur was returned to 30 degrees. A posterior retractor was placed similarly between capsule and labrum. This provided excellent visualization. The contents of the cotyloid fossa were removed with electrocautery and the labrum was removed with a knife. There was significant chondromalacia of the superior acetabulum. Acetabular reaming began with a 48mm reamer. This first reaming was directed anterior to posterior and medial to get down to the true floor. This was inspected and reamed until the true floor was reached. The anterior retractor was then released and entry and exit was provided by traction on the capsular flaps. I then reamed sequentially up to a 52mm reamer where good fit was obtained. The larger reamers were oriented based on anatomical reference of the anterior and lateral dumont to ensure proper abduction and anteversion. Positioning and size was confirmed with the fluoroscopy. A 52mm Depuy [place] acetabular component was selected. The acetabulum was reamed around the periphery with the selected acetabular size to prevent a rim fit. The deep tissues were irrigated. The acetabular component was then impacted in a position of about 40-45 degrees of abduction and 15-20 degrees of anteversion, using the patient´s anatomy as the ultimate landmark. Fluoroscopy was used to confirm this. There was excellent vending machine repairer of the acetabular component and the inserting handle was removed. The acetabular liner, Depuy [id number] polyethylene liner, was inserted and lined up with the tines of the acetabular component. There was no soft tissue interposition. The liner was then impacted into position and confirmed to be well-seated. A portion of the brian-articular cocktail was then injected around the acetabulum into the capsule and periosteum. This cocktail consisted of 123mg of Ropivacaine, 0.25mg of Epinephrine, 0.04mg of Clonidine, and 15mg of Ketorolac, diluted to 50cc. The leg was rotated to 120 degrees. Any remaining medial capsule was released until the lesser trochanter was easily palpable. A retractor was placed medially. The lateral capsule was further released into the shoulder to allow access to the greater trochanter. A Sandoval retractor was placed over the greater trochanter which allowed the trochanter to flip in front of the capsule for excellent exposure. The leg was brought down into maximal extension and 20 degrees of adduction while ensuring there was no impingement on the acetabulum. Any remnant capsule within the trochanter was released. Piriformis and obturator externis were identified and protected. There was excellent access to the proximal femur. The lateral neck remnant was removed with a rongeur. A blunt canal probe was used to identify the canal and trajectory for later broaching. A box osteotome initiated the broach course. A small curved rasp and a curved curette were used to work laterally. Broaching then began with a size 8 Corail broach. This was inserted manually around the trochanter and into the canal before mallet blows. The broach was seated to a few millimeters below the cut level based on the neck cut and the preoperative template. Sequential broaching was continued with the [employer] pneumatic broaching device until a tight fit was obtained with good rotational control of the femur. A trial standard neck was inserted along with a +1.5 trial head. The leg was brought out of extension and adduction and then reduced with traction and internal rotation. The leg was stable anteriorly in a position of 30 degrees of extension and 90 degrees of external rotation. Fluoroscopy was used to ensure there was no fracture and the stem was seated well. Leg lengths were checked with an AP pelvis and pelvic reference points. [employer] navigation system was used to confirm appropriate positioning and leg length and offset. I also utilized an alignment cezar to compare the position of this hip with the contralateral side given the deformity which is limited the use of the navigation. Once content with the desired offset and leg lengths, the leg was brought back into extension, external rotation and adduction. The periosteum and surrounding tissue was injected with remaining portion of the brian-articular cocktail. The proximal femur was irrigated as well as the deep tissues. The Depuy Corail standard collared stem, size 14, was then manually inserted into the proximal femur making sure to control rotation. It was then malleted into position with light blows, giving breaks to allow bone expansion and decrease risk of fracture. The selected Depuy Altrx Ceramic Head, size 36+1.5mm, was then placed onto the clean and dry trunnion and secured with impaction onto the tapered fit. The leg was brought back out of extension and adduction and reduced with traction and internal rotation. Stability was confirmed with no shuck at 90 degrees of external rotation and 30 degrees of extension. No impingement through range of motion arc. Final x-ray images were obtained with fluoroscopy to confirm adequate positioning and no intraoperative fracture. There was some ooze from the hip during the acetabular preparation and the femoral broaching. At the end the case it was fairly minimal although we did lose a little bit more blood than I had anticipated. There was no active bleeding identified. The deep tissues were thoroughly irrigated with Surgiphor, betadine solution. This was allowed to sit in the wound for 3 minutes before being thoroughly irrigated out with normal saline. The capsule was then reapproximated with the previously placed sutures. The TFL fascia was finally closed with a No. 2 Stratafix, barbed suture. Deep tissues were then reapproximated with 0 Vicryl and a running 2-0 Vicryl. The skin was closed with a running 4-0 Monocryl in a subcuticular fashion. This was reinforced with skin glue. A Mepilex silver dressing was applied. At the end of the case, all counts were correct. Marilee was transferred to the hospital bed without difficulty and suffering no apparent complication. Marilee has a good prognosis. Physical therapy will start today and without restrictions, weight-bearing as tolerated. Aspirin 81mg BID will be used for DVT prophylaxis. Date of Procedure: 10/02/25
[2025-10-02] MEDS: ROPIvacaine 0.2% 200 MG/100 ML BAG (15:01)
[2025-10-02] MEDS: EPINEPHrine 1 MG/ML AMP pres-free (15:01)
[2025-10-02] MEDS: Ketorolac 30 MG/ML VIAL (15:01)
--- NOTE | 2025-10-02 16:16 | DI.RAD_ITS ---
Exam(s) XR HIP LT IN OR EXAM: XR HIP LT IN OR CLINICAL HISTORY: OA LEFT HIP. TECHNIQUE: 2D and realtime digital imaging was performed. COMPARISON: CR XR HIP RT COMPLETE AP PELVIS from 06/14/2025 FINDINGS: Hard copy images show removal of previously existing hardware and placement of a left hip prosthesis. The alignment appears satisfactory. Please see procedure note for details. Fluoro time: 32.1seconds RADIATION DOSE DELIVERED: Ivaniar=3.7 mGy
--- NOTE | 2025-10-02 17:07 | W.ANESPOSTOP ---
Postoperative Evaluation Date, Time and Location Date Performed: 10/02/25 Time Performed: 17:07 Patient Location: PACU Vital Signs Most Recent Imported Vital Signs: Most Recent Vital Signs Temp Pulse Resp BP Pulse Ox 36.2 C L 82 14 149/78 H 95 10/02/25 16:50 10/02/25 17:00 10/02/25 17:00 10/02/25 16:57 10/02/25 17:00 Pain Score Most Recent Pain Score: Most Recent Pain Score Pain Level 0 10/02/25 16:50 Assessment Mental Status: Awake (Alert & Oriented to Patient Baseline) Airway and Respiratory Function: Patent airway with normal (patient baseline) respiratory exam Cardiovascular Function: Hemodynamically Stable Hydration Status: Adequately Hydrated Nausea & Vomiting: No Nausea or Vomiting Pain: Pt. Denies Any Pain Peripheral Nerve Block: Patient did not receive a nerve block Postoperative Comments:: Spinal resolved. Bladder scanned at <50cc.
[2025-10-02] MEDS: Aspirin E.C. 81 MG TABEC PO (19:54)
[2025-10-02] MEDS: ceFAZolin 1 GM/50 ML BAG IVPB (19:56)
[2025-10-02] MEDS: Normal Saline Flush 10 ML SYR IV (19:57)
[2025-10-03 00:38] VITALS: BP 143/76; PULSE 95; RESP 16; TEMP 36.5; O2SAT 93
[2025-10-03 03:51] VITALS: BP 136/63; PULSE 93; RESP 18; TEMP 36.3; O2SAT 94
[2025-10-03] MEDS: ceFAZolin 1 GM/50 ML BAG IVPB (04:06)
[2025-10-03 07:43] VITALS: BP 124/60; PULSE 98; RESP 17; TEMP 36.8; O2SAT 92
[2025-10-03] MEDS: Pantoprazole 40 MG TABCR PO (08:12)
[2025-10-03] MEDS: Celecoxib 200 MG CAP PO (08:12)
[2025-10-03] MEDS: hydroCHLOROthiazide 25 MG TAB PO (08:12)
[2025-10-03] MEDS: Dexamethasone 4 MG TAB PO (08:13)
[2025-10-03] MEDS: Atorvastatin 40 MG TAB PO (08:13)
[2025-10-03] MEDS: Aspirin E.C. 81 MG TABEC PO (08:13)
[2025-10-03] MEDS: Lisinopril 20 MG TAB 40 MG PO (08:13)
[2025-10-03] MEDS: Magnesium Oxide 400 MG TAB 200 MG PO (08:13)
[2025-10-03] MEDS: Lactated Ringers 1,000 ML 1000 ML IV (08:14)
--- NOTE | 2025-10-03 08:15 | IN_ITS ---
PT Notes Visit Reasons: Left hip DJD PT Inpatient Initial Evaluation Date: 10/03/2025 Referring Doctor: Tanvi Hamilton CLIENT RELATION SPECIALIST/ PT Orders: PT CONSULT: Eval and Treat Precautions: WBT, standard Patient Profile/Admitting Diagnosis: Pt is a 79-year-old female who had Left YAS with spinal anesthesia on 10/02/2025. Post op uncomplicated PMHX: History of total right hip replacement (Acute 05/30/25) Unilateral primary osteoarthritis, left knee (Acute) Acquired genu valgum of right knee (Acute) Localized osteoarthritis of right knee (Acute) Medical History (Updated 06/14/25 @ 11:45 by Jose Araujo RN) Hx of fracture of left hip History of meningioma Diabetes mellitus Hyperlipidemia Hypertension Surgical History (Updated 06/14/25 @ 11:45 by Jose Araujo RN) Hx of tubal ligation H/O arthroscopy of left knee Social History/Home Situation: Pt lives alone in a single-family home with 2 floors. Pt has 3 RADHA with railings on both sides. Pt has FOS with railings on both sides to reach the second floor. Pt has a walk-in shower with hand railings. Pt plans to sleep in recliner for first week because her bedroom is on the second floor. Equipment Owned/DME: cane, FWW, 4WW Subjective: Pt reported they were feeling well, not really in pain, but she was really hungry. Pt stated she was not allowed to ambulate the stairs for 5 days per surgeon’s orders. Objective: General Observation: Pt laying in bed, with ice pack on left hip, and compr ession cuffs around calves. Mental Status: Pt alert and oriented x4. Pt will go into great detail to answer questions. Informed Consent/Education: Patient instructed in purpose of PT consult. Packet containing YAS exercise protocol has been given to patient. Education and training on initial set of exercises that can be done at home have been completed with patient. Pain: pain assessed before pt was provided Tylenol this morning. 2/10 in left hip lying in bed 5/10 in left hip with ambulation ROM: Right Upper Extremity: WFL Left Upper Extremity: WFL Right Lower Extremity: WFL Left Lower Extremity: WFL Strength: Right Upper Extremity: 4/5 Left Upper Extremity: 4/5 Right Lower Extremity: Hip flexion: 3+/5, knee extension3+/5, knee flexion: 3/5, glute:4-/5, ankle: 4/5 Left Lower Extremity: Hip flexion: 3/5, knee extension3/5, knee flexion: 3/5, glute:4-/5, ankle: 4/5 Sensation: intact Bed Mobility/Transfers: Supine to sit EOB: Min A of 1 Sit to stand: Min A of 1 Stand to sit independent Bed to chair: CGA Gait: Ambulation: CGA w/FWW for 30 total feet before needing a rest. Antalgic gait, Step to pattern. Jacquie decreased, step height decreased, step length decreased. Increased WB through UE on FWW Stairs: 2x Three four-inch steps CGA with railings on both sides for the first set and one railing for the second set. Step two pattern holding onto both railings. Pt needed cueing for proper hand placement and foot sequence. Balance: Static Sitting: Normal Dynamic Sitting: Normal Static Standing: good Dynamic Standing: good w/ B UE support Special Tests: Mobility Limitations Standardized Measure [facility] 6 clicks Basic Mobility Inpatient Short Form: Raw Score: 17 CMS Score: 50.57 deficit Treatment 41312: Only LLE Quad contractions: 1x5 w/5second holds Glute contractions: 1x5 w/5second holds Ankle pumps: 1x5 Heel slides: 1x5 Seated Leg extensions: 1x5 (no lag in quad) DPTS provided verbal and tactile cueing with demonstration of exercises to help with proper motor recruitment. Assessment: Pt needed minimal assistance with bed mobility. Pt able to ambulate CGA with FWW for 30 feet. At about 27 feet pt quality of ambulation started to diminished. PT advised pt to sit in following wheelchair and rest. Pt was wheeled to the PT room to perform stairs. With pt living alone, and her bedroom is upstairs, pt decrease in strength and limited activity tolerance, pt would benefit from HHPT to help assist pt with home mobility and daily function. Patient presents with clinical signs and symptoms consistent with current/admitting diagnoses that have resulted to mobility limitations, gait instability, generalized weakness, and impairment of motor control as demonstrated by the following impairment level findings: 1. Decreased strength to both: quads, hips, hamstrings and glutes. 2. Impaired standing balance 3. Limitation of joint range of motion in left knee? 4. Limited activity tolerance 5. Increased pain left hip Impairments are contributing to the following functional limitations: 1. Inability to safely ambulate without assistive device 2. Increase completion time for mobility ADL performance 3. Increased fall risk 4. Difficulty performing stairs independently 5. Difficulty performing bed mobility independently Patient is assessed as a Low complexity based on the following: History: 79-year-old Female with impairment level findings, functional limitations, and past medical history as indicated above Examination: Demonstrable impairment in strength, balance, and mobility level with underlying impairments and functional limitations as documented above Presentation: Evolving Decision Making: Low Goals: N/A. PT evaluation and 1-2 treatment sessions only for functional mobility training using recommended AD and for HEP instruction. Plan of Care/Treatment Plan: PT evaluation and 1-2 treatment session only for functional mobility training using recommended AD and for HEP instruction. DISCHARGE RECOMMENDATIONS: Home with HEP until follow up appointment in 2 weeks TREATMENT CODE/TIME: 66716, [id number]/7:34am-8:10am Thank you for the opportunity to participate in the care of this patient. Written by: Ramiro Torres DPTS Supervised by: Diana Rees, PT
[2025-10-03] MEDS: Acetaminophen 500 MG TAB 1000 MG PO (08:18)
--- NOTE | 2025-10-03 09:32 | INITIAL_ITS ---
Date of service: 10/03/25 Time of Service: 09:33 Care Management Initial Assmt Initial Assessment Reason for Hospitalization: left total hip arthroplasty Functional Status/Living Situation Patient Presentation: Marilee was sitting up in a chair when CM met with her. She was preparing to be discharged. Marilee was admitted on 10/02/25 to have a total hip arthroplasty. The procedure went well as did PT this morning. She will be discharged home with new home health orders for PT and OT. Marilee lives alone in [place], [place]. 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 She noted that it has been a very popular and successful program. Town of Residence: [place], [place] Resides with: Alone Employment Status: Retired Instrumental Activities of Daily Living (ADLs): Independent Medications Medication Management: No Issues/Barriers identified Advance Directives Advance Directives: Do you have an Advance Directive: Y , 10:43 AD On File at [facility]: Y 09/27/25, 10:43 Date Asked 09/27/25 09/27/25, 10:43 AD Date Reviewed 10/02/25 09/27/25, 10:43 COLST On File at [facility] COLST Date Scanned Code Status Resuscitation Status Full Code Insurance Coverage/Financial Issues Insurance: Medicare [employer] healthcare Mcr Supplement Care Team Visit Care Team Role Provider Type Pee Little Primary Care Provider NON-[facility] STAFF PHYSICIAN InPatient Shaun Kang Other Providers OTHER Joe Luong MD Admit Provider [facility] STAFF PHYSICIAN Attending Provider Discharge Potential Discharge Needs: Surgical F/U Appt Anticipated Barriers to Discharge: None Identified Patient/Family Education Needs: Review discharge instructions, discuss Ask Me Three Transportation: Private vehicle Plan: Anticipate Marilee will be discharged home with new home health services for PT and OT. She will follow up with her surgeon and plan of care and transport with family. CM will follow and continue to support discharge planning efforts. Social Determinants of Health Screening Social Determinants of health last assessed in clinic: 10/03/25 Will the Patient Participate in the Screening?: Yes Do you worry about having a steady place to live?: no Problems where you live: no known problems In the past 12 months, have you had to go without electric, gas, oil or water in your home?: no 1. Within the past 12 months, we worried whether our food would run out before we got money to buy more.: Never true 2. Within the past 12 months, the food we bought just didn't last and we didn't have money to get more.: Never true Has lack of transportation kept you from medical appointments or from doing things needed for daily living?: no Has anyone in your life made you feel unsafe or unsupported?: no How hard is it for you to pay for the very basics like food, housing, medical care, and heating? Would you say it is:: Not hard at all Do you want help finding or keeping work or a job?: I do not need or want help If for any reason you need help with day-to-day activities such as bathing, preparing meals, shopping, managing finances, etc., do you get the help you need?: I need a lot more help How often do you feel lonely or isolated from those around you?: Sometimes Do you speak a language other than [place] at home?: No Does the patient want assistance with any of the above?: No Health Related Social Needs Health related social needs: problems with daily activities (Z73.9) and feeling lonely/isolated (Z60.8) Health related social needs details: lives alone, due to hip issue has not been able to volunteer at [facility] so has been lonely. [facility] All Active Problems History of total left hip arthroplasty (Acute 10/02/25) History of total right hip replacement (Acute 05/30/25) Acquired genu valgum of right knee (Acute) Localized osteoarthritis of right knee (Acute) Medical History Hx of fracture of left hip History of meningioma Last seen neuro 6 years ago, and her neurologist at [facility] [place] stated she does not require further care unless she has symptoms, and that it is dormant Diabetes mellitus Hyperlipidemia Hypertension Surgical History Hx of tubal ligation H/O arthroscopy of left knee Social History Smoking/Tobacco Use Status: Former Tobacco Use Quit Date: 11/22/93 Smoking risk assessment performed?: Yes Alcohol Intake: current Alcohol Intake frequency: holidays/special occasions only Alcohol type: wine Drug use: Never Substance use type: does not use Housing: house Do you feel safe at home: Yes Additional Social history: lives alone.
--- NOTE | 2025-10-03 10:01 | DSE_ITS ---
Date of service: 10/03/25 Time of Service: 07:15 DS: Diagnosis Discharge Diagnosis (1) Degenerative joint disease of left hip: Status: Inactive Discharge Plan Disposition Patient Disposition: Home W/Home Health Services Condition: Good Discharge Details Reason For Visit: Left hip DJD Admit Date/Time: 10/02/25 07:37 Admit Provider: Joe Luong Attending Provider: Joe Luong Primary Care Provider: Pee Little Hospital Course Hospital Course: Patient was admitted to the medical/surgical floor following the procedure. The surgery was tolerated well without any notable medical, surgical, or anesthetic complications. Mobilization began postoperatively. She was voiding spontaneously. Vitals were stable. Physical therapy worked with the patient and was cleared for discharge home. No acute medical issues. Pain was controlled on oral regimen. Home Meds and New Rx's Prescriptions: New acetaminophen 500 mg tablet 1,000 mg PO Q8H PRN Qty: 90 0RF Rx Instructions: Take two tablets up to every 8 hours as needed for pain aspirin 81 mg tablet,delayed release (DR/EC) 81 mg PO BID 30 Days Qty: 60 0RF celecoxib [Celebrex] 200 mg capsule 200 mg PO BID PRNQty: 60 0RF Rx Instructions: Take one tablet twice daily for pain and inflammation docusate sodium [Colace] 100 mg capsule 100 mg PO BID Qty: 28 0RF tramadol 50 mg tablet 50 mg PO Q6H PRN (Reason: severe postoperative pain) Qty: 12 0RF Rx Instructions: Take one tablet up to every 6 hours as needed for severe pain pantoprazole 40 mg tablet,delayed release (DR/EC) 40 mg PO DAILY Qty: 14 0RF Rx Instructions: Take one tablet once daily dexamethasone 4 mg tablet 4 mg PO DAILY Qty: 1 0RF Rx Instructions: Take one tablet once daily for two days Continued atorvastatin 40 mg tablet 40 mg PO DAILY hydrochlorothiazide 25 mg tablet 25 mg PO DAILY lisinopril 40 mg tablet 40 mg PO DAILY multivitamin Tablet 1 tab PO DAILY vitamin B complex Tablet 1 tab PO DAILY magnesium 200 mg tablet 200 mg PO DAILY Elderberry Calcium 500 + D (D3) 1 tab PO DAILY Patient Comments: Vit D3 is larger dose per pt Ocutabs Tablet 1 tab PO DAILY coenzyme Q10 [Co Q-10] 10 mg capsule 10 mg PO ONCE Percogesic cimetidine [Heartburn Relief (cimetidine)] 200 mg tablet 200 mg PO ONCE Discontinued acetaminophen 500 mg tablet 1,000 mg PO TID Qty: 90 3RF Discharge Instructions Additional Instructions: Total Hip Discharge Instructions Activity: The most important activity is to walk. You should try to take short walks a few times a day. You have no restrictions on movement or positioning, but do not try to force what you do. You will find some stiffness and weakness with hip flexion (lifting your knee). Do not try to strengthen this too early, continue to practice walking and stairs and this will come. - Outpatient physical therapy can be helpful to help return you to a normal gait and improve your flexibility and strength. This can start around 2 weeks. For some patients, it´s not necessary. Usually this is determined at the time of discharge or at the first post-operative visit. - You should wear the MESFIN hose on both legs for 2 weeks. Dressing: Keep the surgical dressing in place for at least one week. After the first week it may be removed and replace with light gauze and tape or nothing. It may get wet after 3 days but avoid soaking the dressing. If it gets wet, just lightly pat dry. It is important to always keep some gauze between skin folds, especially when you are sitting. Spend some time with the wound exposed when you are lying flat as the incision does wrinkle onto itself. Medications: - You should take Tylenol and an anti-inflammatory Celebrex as your primary pain control medications. If the Celebrex is too expensive or not covered, please call the office for another alternative (Advil/Ibuprofen or Naproxen/Aleve). - You have been prescribed a stronger pain medication Tramadol for breakthrough pain, take as needed as prescribed. - You have also been prescribed a stomach acid reduction agent Pantoprozole to help reduce stomach acid and reflux. - You have also been prescribed Decadron to help with post-operative nausea and pain. You will take this for a total of two days - one tablet will be given in the hospital and another is prescribed to take on . - You will be taking Aspirin 81mg twice a day for DVT prevention unless instructed otherwise. - If you have constipation you should take Colace (which has been prescribed) or Miralax (which is available [id number]). It takes most people 3-4 days to have a bowel movement. Follow-up: 2 weeks If you have any acute concerns or questions, please do not hesitate to contact the office at [phone]. You may contact Dr. Luong with any questions after hours through the hospital at [phone] or on his cell phone at [phone]. 1. Encounter Date and Reason I certify that Marilee Gorman was seen by Joe Luong MD on 10/03/25 and that I had a [id number] encounter with this patient that meets the physician face to face encounter requirements. 2. Clinical Findings Supporting Skilled Need and Homebound Status I certify that home health services are medically necessary, include either intermittent nursing home and/or physical/speech therapy, and that this patient is homebound in that absences from the home require considerable and taxing effort and are infrequent or of short duration, or are attributable to the need to receive medical care. [X] (a) Attached documentation from encounter provides clinical findings supporting skilled need and homebound status (including what assistance patient requires to leave the home). The encounter with the patient was in whole, or in part, for the following medical condition, which is the primary reason for home health care: Left hip DJD Fdc: Physical Therapy: Marilee will benefit from home health physical therapy and Occupational Therapy to assist in her recovery from hardware removal and hip replacement on the left side. She has notable weakness about the left hip from her multiple surgeries. She has gait dysfunction. She may be weightbearing as tolerated with an assistive device and without positioning restrictions. Speech Therapy: Homebound: Marilee is homebound. She is unable to leave her home unassisted due to weakness and gait dysfunction. 3. Certification and Authentication I certify that I composed the above information based on my clinical judgement relating to this patient's medical condition and, if applicable, clinical findings communicated to me by the NPP or inpatient physician who performed the Home Health Referral. All further orders will be obtained through Dr. Luong Stand Alone Forms: Portal Information Referrals: Joe Luong MD [ [facility] STAFF PHYSICIAN, Orthopaedic Surgical] Activity:: Activity as Tolerated Equipment/Supplies:: No Equipment Needed Diet:: As Tolerated Discharge Orders Discharge Orders: Discharge Order (Routine); Ordered 10/03/25 Ordered By: Joe Luong DS: Summary Time Spent with Patient providing and/or coordinating discharge services: Less than 30 minutes Status at Discharge Functional status at discharge: uses cane/walker Overall status at discharge: patient is progressing back to baseline Mental Status: mental status grossly normal Speech and Movement: speech and movement normal Mood: congruent mood Affect: normal affect Quality:SDOH Health Related Social Needs: Health related social needs daily activities lonely/is olated Health related social needs details lives alone, due t o hip issue has not been able to volunteer at [facility] so has been lonely. Exam Narrative Exam Narrative: Sitting up in the hospital bed. No acute distress. Alert and orient x 3. Evaluation of the left hip shows some swelling about the left thigh. Dressings are clean dry and intact. No pain with hip internal and external rotation. Active ankle dorsiflexion, plantarflexion, great toe extension and flexion. Sensation intact light touch over the femoral sided nerve distributions. Psych Mental Status: mental status grossly normal Speech and Movement: speech and movement normal Mood: congruent mood Affect: normal affect DS: Data Vitals/I&O Vitals and I&O: Vital Signs Temperature 97.5 F L 10/02/25 10:47 Pulse 100 H 10/02/25 10:47 Pulse Rhythm Regular 10/02/25 10:47 Respiratory Rate 22 10/02/25 10:47 Respiratory Depth Normal 10/02/25 10:47 Blood Pressure 153/90 H 10/02/25 10:47 Pulse Oximetry 96 10/02/25 10:47 Oxygen Delivery Method Room Air 10/02/25 10:47 Oxygen Flow Rate 0 10/02/25 10:47 Pain Level 0 10/02/25 10:47 Intake & Output 10/01/25 10/02/25 10/02/25 23:59 11:59 23:59 Weight 219 lb 5.759 oz 219 lb 5.759 oz PFSH All Active Problems History of total left hip arthroplasty (Acute 10/02/25) History of total right hip replacement (Acute 05/30/25) Acquired genu valgum of right knee (Acute) Localized osteoarthritis of right knee (Acute) Medical History Hx of fracture of left hip History of meningioma Last seen neuro 6 years ago, and her neurologist at [facility] in [place] stated she does not require further care unless she has symptoms, and that it is dormant Diabetes mellitus Hyperlipidemia Hypertension Surgical History Hx of tubal ligation H/O arthroscopy of left knee Social History Smoking/Tobacco Use Status: Former Tobacco Use Quit Date: 11/22/93 Smoking risk assessment performed?: Yes Alcohol Intake: current Alcohol Intake frequency: holidays/special occasions only Alcohol type: wine Drug use: Never Substance use type: does not use Housing: house Do you feel safe at home: Yes Additional Social history: lives alone.
[2025-10-03 11:24] VITALS: BP 123/89; PULSE 96; RESP 16; TEMP 36.4; O2SAT 95
--- NOTE | 2025-10-03 12:28 | PT.INTREAT ---
PT Notes Visit Reasons: Left hip DJD Inpatient Physical Therapy Treatment Note [facility] Date: 10/03/2025 PRECAUTIONS: Fall. Standard. Activity as tolerated. WBT SUBJECTIVE: Pt stated they felt well, and ready to go home. Pt reports she will be sleeping in her recliner initially. OBJECTIVE: General observation: Pt sitting in recliner when PT entered. RN came in and provided discharge packet and spoke with pt about discharge process PAIN: 2/10 in left hip sitting in recliner 5/10 in left hip with ambulation, but pt reported they felt well and didn’t need to sit down VITALS: Monitored by Nursing Therapeutic Activities ([id number]): Direct one-on-one instruction in dynamic activities to improve functional performance. BED MOBILITY/TRANSFERS Sit to stand from recliner with 4WW CGA Stand to sit to recliner with FWW CGA Ambulation: Pt able to ambulate 30 feet with 4WW CGA. Pt mike, step length, and step height all decreased compared to when she walked 70 feet with FWW. PT changed pt over to FWW and the quality of ambulation increased, but still below baseline. Provided skilled cues and instruction on performance and technique throughout. ASSESSMENT: PT provided verbal and tactile cueing, specifically with heel clearance. For PM session, pt has a 4WW down stairs, PT had the pt use a 4WW to start ambulation. Pt had overall decreased in ambulation quality compared to when she used the FWW. PT switched AD’s with pt and spoke with her about using her FWW for the first week. Post ambulation pt presented with dyspnea. Pt reported they sometimes forget to breath when they are concentrating a lot. PT provided breathing techniques to help with breathing. Post ambulation PT explained to the pt it would be beneficial for her to bring in her FWW from the garage and use it for the first week, instead of the 4WW she was planning to use. Pt would benefit from skilled physical therapy to help increase her activity tolerance, increase her independence with stairs, and her ambulation with an FWW. PLAN: POC until discharge to home TREATMENT CODE/TIME: 28233/10:55-11:24 for 29 minutes DISCHARGE RECOMMENDATION: HHPT with HEP for 2 weeks Written by Ramiro Torres DPTS Supervised by Diana Rees PT
--- NOTE | 2025-10-03 12:41 | PDOC.CMDIS ---
Date of service: 10/03/25 Time of Service: 12:41 LACE Index Scoring Tool Questions: Length of Stay (in days): 1 Was the patient admitted via the E.D.?: No Comorbidities: Diabetes w/o Complication E.D. Visits: 0 Answers: Total Score: 2 Risk of Readmission: Low Risk Care Management Discharge Plan Reason for Hospitalization: YAS Discharge Plan: Marilee will be discharged home with [facility] services for PT and OT. As she lives in [place], [facility] been notified by CM. She will follow up with her surgeon and plan of care and transport with a friend. Patient/Family Education Needs: Review of discharge instructions, limitations, follow up plan and discuss Ask Me Three. Services Needed at Discharge: Home Health Care Services SDOH Health Related Social Needs: Health related social needs daily activities lonely/isolated Health related social needs details lives alone, due to hip issue has not been able to volunteer at [facility] so has been lonely. Health related social needs details: lives alone, due to hip issue has not been able to volunteer at [facility] so has been lonely.
== END 2025-10-03 13:04 | disposition home health service (06) ==
LOC: SUR 13:07 → MS 10-03 04:12 → SUR 10-03 04:13 → MS 10-03 04:13
PROVIDERS: Admitting Provider Student in an Organized Health Care Education/Training Program; PCP Registered Nurse; Visit Provider Student in an Organized Health Care Education/Training Program
PROC: (CPT 27130; principal; 2025-10-02 14:45)
PROC: (CPT 27130; 2025-10-02 14:45)
DX: M16.12 Unilateral primary osteoarthritis, left hip (principal); S72.92XP Unspecified fracture of left femur, subsequent encounter for closed fracture with malunion; Z96.641 Presence of right artificial hip joint; M17.0 Bilateral primary osteoarthritis of knee; E78.5 Hyperlipidemia, unspecified; E11.9 Type 2 diabetes mellitus without complications; I10 Essential (primary) hypertension; Z79.899 Other long term (current) drug therapy
CPT/HCPCS: 27130; 20985; 20680; 97161; 97530; 73501; 93005; 93010; C1776; G0378; J0166; J0690; J1100; J1885; J2003; J2371; J2401; J2405; J2704; J2795; J8540

== ENCOUNTER 2025-10-15 14:30 | Outpatient (CLI) | payer MEDICARE, SELFPAY ==
--- NOTE | 2025-10-15 13:15 | DI.RAD_ITS ---
Exam(s) XR HIP LT COMPLETE AP PELVIS EXAM: XR HIP LT COMPLETE AP PELVIS INDICATION: 1ST POST OP S/P L YAS. COMPARISON: CR XR HIP RT COMPLETE AP PELVIS from 06/14/2025 XA XR HIP LT IN OR from 10/02/2025 TECHNIQUE: 2D digital imaging was performed. Two views. FINDINGS: The bilateral hip prostheses are unchanged in alignment. There are no abnormal surrounding bony lucencies. Lucencies related to previous hardware removal is noted in the proximal left femur. DATA REPOSITORY: RADIATION DOSE DELIVERED:
== END 2025-10-15 14:31 | disposition home or self-care (01) ==
LOC: DIORS 14:30
PROVIDERS: PCP Registered Nurse; Referring Provider Registered Nurse; Visit Provider Physician Assistant
DX: Z47.1 Aftercare following joint replacement surgery (principal); Z96.642 Presence of left artificial hip joint
CPT/HCPCS: 99024; 73502

== ENCOUNTER → 2025-11-12 13:41 | Outpatient (BNVA) | payer MEDICARE, SELFPAY | PROVIDERS: PCP Registered Nurse; Referring Provider Registered Nurse; Visit Provider Physician Assistant | DX: Z47.1 Aftercare following joint replacement surgery (principal); Z96.642 Presence of left artificial hip joint | CPT/HCPCS: 99024 ==